=== PATIENT | male | born 1970 | race Two or more races ===

== ENCOUNTER 2025-06-28 20:56 | Inpatient (IN) | payer OTHER ==
[~2025-06-28] VITALS: Ht 170.2 cm; Wt 87.4 kg
[2025-06-29] VITALS (8 sets, daily range): BP systolic 111–133; BP diastolic 75–79; PULSE 61–87; RESP 11–18; TEMP 97.3–98.4; O2SAT 94–99
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
[2025-06-29 02:07] LABS: Hematocrit 41.3 % (41.0-53.0); Hemoglobin 14.8 g/dL (13.5-17.5); Mean Corpuscular Hemoglobin 30.6 pg (28.0-32.0); Mean Corpuscular Volume 85.2 fL (80.0-100.0); Nucleated Red Blood Cells % 0.5 %
[2025-06-29 02:16] LABS: Chloride 107 mmol/L (98-107); Potassium 3.9 mmol/L (3.5-5.1); Sodium 140 mmol/L (136-145)
[2025-06-29 02:17] LABS: Anion Gap 9 (5-15); Calcium 9.0 mg/dL (8.7-10.4); Carbon Dioxide 24 mmol/L (20-31)
[2025-06-29 02:22] LABS: BUN/Creatinine Ratio 12.3 (10.0-20.0); Blood Urea Nitrogen 10 mg/dL (9-23); Glucose 91 mg/dL (74-106)
--- NOTE | 2025-06-29 02:53 | DVH ---
CLINICAL INDICATION: Right wrist pain TECHNIQUE: XY R WRIST 3+ VIEW XRAY Comparison: None FINDINGS/IMPRESSION: : Moderately displaced fracture of the base of the 1st metacarpal. Visualized joint spaces are well preserved. Soft tissue elements are intact and normal in appearance.
[2025-06-29] MEDS ORDERED: NITROGLYCERIN 0.4 MG SL TAB SL PRN (04:00)
[2025-06-29] MEDS ORDERED: MORPHINE SULFATE INJ 2 MG/ml SYRG IV PRN (04:00)
[2025-06-29 04:18] LABS: INR 1.02 (0.9-1.15); Partial Thromboplastin Time 28.7 SEC (24.5-34.5); Prothrombin Time 10.8 sec (9.3-11.8)
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
[2025-06-29] MEDS: BUPIVACAINE HCL 0.25% P/F 10 ML VIAL ONE (09:57)
[2025-06-29] MEDS: ENOXAPARIN SOD 40 MG/0.4 ML SYRINGE SC SCH (10:00)
--- NOTE | 2025-06-29 10:19 | DVH ---
EXAM: XY CHEST PORTABLE Indication: pain Technique: Single frontal view of the chest was obtained Comparison: None FINDINGS: Lines and Tubes: None Lungs: No focal consolidation. Pleura: No effusion. No pneumothorax. Cardiomediastinal contours: Unremarkable Bones: No acute osseous abnormality. IMPRESSION: No acute cardiopulmonary disease.
[2025-06-29] MEDS: ceFAZolin 2 GM/D5W50ml 50 ML IV ONE (10:55)
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
[2025-06-29] MEDS ORDERED: fentaNYL CITRATE 100 MCG/2 ML VL ONE (11:13)
[2025-06-29] MEDS ORDERED: ONDANSETRON HCL 4 MG/2 ML VIAL ONE (11:13)
[2025-06-29] MEDS ORDERED: MIDAZOLAM HCL 2MG/2ML 2ml VIAL (1mg/ml) ONE (11:13)
[2025-06-29] MEDS ORDERED: LIDOCAINE 2% (LOCAL ANESTH.) PF 5ml SDV ONE (11:13)
[2025-06-29] MEDS ORDERED: METOCLOPRAMIDE HCL 5MG/ml INJ 2ml VIAL ONE (11:13)
[2025-06-29] MEDS ORDERED: PROPOFOL 10 MG/ML 20 ML IV ONE (11:14)
[2025-06-29] MEDS: KETOROLAC TROMETH 30 MG/ML 1ML VIAL IV ONE (11:30)
[2025-06-29] MEDS ORDERED: ONDANSETRON HCL 4 MG/2 ML VIAL IV PRN (11:30)
[2025-06-29] MEDS: ACETAMINOPHEN IV 1000 MG/100ML (10MG/ML) IV ONE (11:30)
[2025-06-29] MEDS ORDERED: HYDROmorphone HCL 2 MG/ML VL/or syr IV PRN (11:30)
[2025-06-29] MEDS: BUPIVACAINE 0.25% INJ 50ML VIAL ONE (11:41)
[2025-06-29] MEDS ORDERED: LIDOCAINE W/ EPINEPHRINE 1% 20ML VIAL ONE (11:51)
[2025-06-29] MEDS ORDERED: HYDROmorphone HCL 2 MG/ML VL/or syr ONE (11:52)
[2025-06-29] MEDS: HYDROcodone-ACET 10/325MG TAB PO PRN (15:01)
[2025-06-29] MEDS: TAMSULOSIN HYDROCHLORIDE 0.4 MG CAP PO SCH (17:59)
[2025-06-29] MEDS: ceFAZolin 1GM/50ML 50 ML IV SCH (21:33)
[2025-06-30 00:45] VITALS: BP 106/71; PULSE 92; RESP 17; TEMP 98.5; O2SAT 94
[2025-06-30 04:31] VITALS: BP_SYST 113; BP_SYST 117; BP_DIAS 72; BP_DIAS 81; PULSE 91; PULSE 99; RESP 16; RESP 18; TEMP 98.5; TEMP 98.7; O2SAT 93; O2SAT 96
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
[2025-06-30 08:00] VITALS: PULSE 95; RESP 18; O2SAT 96
[2025-06-30 08:47] VITALS: BP 128/93; PULSE 95; RESP 18; TEMP 98.1; O2SAT 96
[2025-06-30 12:38] VITALS: BP 109/75; PULSE 87; RESP 16; TEMP 97.9; O2SAT 97
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
[2025-06-30 14:57] VITALS: BP 109/75; PULSE 87; RESP 16; TEMP 97.9; O2SAT 97
--- NOTE | 2025-07-01 08:22 | ECG ---
[facility] Test Date: 2025-06-29 Test Time: 10:28:20 Pat Name: NATASHA MONTES Department: Room: 0232 A Gender: M Smoke Jumper: [id number] : 1970 Requested By: AUDREY BRASHER Order Number: [id number] Reading MD: Measurements Intervals [place] Rate: 59 P: 53 MS: 187 QRS: 27 QRSD: 79 T: 58 QT: 425 QTc: 421 Interpretive Statements Sinus rhythm Borderline low voltage, extremity leads Please click the below link to view image of tracing.
== END 2025-06-30 15:55 | DRG 514 ==
LOC: ER 20:56 → EEVIPCON 20:56 → OVERFLOW 06-29 03:53 → EAST 06-29 08:41
PROVIDERS: ADMIT Internal Medicine; ATTEND Internal Medicine
PROC: 0PSP34Z Reposition Right Metacarpal with Internal Fixation Device, Percutaneous Approach (ICD-10-PCS; principal; 2025-06-29 11:22)
DX: S62.231A Other displaced fracture of base of first metacarpal bone, right hand, initial encounter for closed fracture (principal); N40.0 Benign prostatic hyperplasia without lower urinary tract symptoms; Z79.899 Other long term (current) drug therapy; Y08.89XA Assault by other specified means, initial encounter; Y93.89 Activity, other specified; Y92.89 Other specified places as the place of occurrence of the external cause; Y99.8 Other external cause status
CPT/HCPCS: 36415; 71045; 73110; 80048; 85025; 85610; 85730; 93005; G0378; J0131; J1100; J2003; J2250; J2405; J2704; J3490

== ENCOUNTER 2025-07-16 12:23 | Emergency (ER) | payer OTHER ==
[~2025-07-16] VITALS: Ht 170.2 cm; Wt 81.8 kg
--- NOTE | 2025-07-16 13:09 | DVH ---
CLINICAL INDICATION: POSSIBLE INCISION WOUND INFECTION TECHNIQUE: 3 radiographic views of the right hand were obtained. Comparison: XY R WRIST 3+ VIEW XRAY on DOS: 06/29/25 FINDINGS/IMPRESSION: 2 internal fixation pins through the base of the 1st metacarpal.
--- NOTE | 2025-07-16 13:31 | ED.PDOC ---
History of Present Illness HPI Comments A 54 YEAR OLD MALE PRESENTS TO THE ED WITH COMPLAINT OF WOUND RECHECK OF RIGHT WRIST. PATIENT STATES HE HAD SURGERY AND HARDWARE PLACED ON HIS RIGHT WRIST 4 WEEKS AGO. PATIENT REPORTS HE BEGAN TO EXPERIENCE REDNESS AND PAIN TO THE AFFECTED AREA 4 DAYS AGO. PATIENT ALSO FEELS LIKE THE HARDWARE MAY BE STICKING OUT AND DISPLACED AND WOULD LIKE TO BE EVALUATED. PATIENT DENIES FEVER, CHILLS, SHORTNESS OF BREATH, CHEST PAIN, ABDOMINAL PAIN, NAUSEA, VOMITING, HEADACHE, OR OTHER COMPLAINTS. NO OTHER SYMPTOMS OR MODIFYING FACTORS AT THIS TIME. PATIENT IS ALERT, ORIENTED X 4, AND HAS STEADY GAIT. Chief Complaint: Wound Check Time Seen by MD: 12:33 Reviewed Notes: Nurses Notes, Medications, Allergies Allergies: Coded Allergies: NO KNOWN ALLERGIES (Unverified , 06/28/25) Home Meds No Active Prescriptions or Reported Meds Information Source: Patient, Emergency Med Personnel Mode of Arrival: EMS Severity: Moderate Timing: Days Duration: Since onset, Days Prehospital treatment: None Medication Refill: For: Other (RIGHT WRIST INCISION WOUND REDNESS AND PAIN) Past Medical History PAST MEDICAL HISTORY: Denies Surgical History: Denies all surgeries Family History Family History: Reviewed,noncontributory to illness Social History Smoker: Non-Smoker Alcohol: Denies ETOH Use Drugs: Denies Drug Use Lives In: Home Constitutional: denies: chills, diaphoresis, fatigue, fever, malaise, sweats, weakness, others EENTM: denies: blurred vision, double vision, ear bleeding, ear discharge, ear drainage, ear pain, ear ringing, eye pain, eye redness, hearing loss, mouth pain, mouth swelling, nasal discharge, nose bleeding, nose congestion, nose pain, photophobia, tearing, throat pain, throat swelling, voice changes, others Respiratory: denies: cough, hemoptysis, orthopnea, SOB at rest, shortness of breath, SOB with excertion, stridor, wheezing, others Cardiovascular: denies: chest pain, dizzy spells, diaphoresis, Dyspnea on exertion, edema, irregular heart beat, left arm pain, lightheadedness, palpitations, PND, syncope, others Gastrointestinal: denies: abdomen distended, abdominal pain, blood streaked bowels, constipated, diarrhea, dysphagia, difficulty swallowing, hematemesis, melena, nausea, poor appetite, poor fluid intake, rectal bleeding, rectal pain, vomiting, others Genitourinary: denies: burning, dysuria, flank pain, frequency, hematuria, incontinence, penile discharge, penile sore, pain, testicle pain, testicle swelling, urgency, others Neurological: denies: dizziness, fainting, headache, left sided numbness, left sided weakness, numbness, paresthesia, pre-existing deficit, right sided numbness, right sided weakness, seizure, speech problems, tingling, tremors, weakness, others Musculoskeletal: reports: others (RIGHT WRIST PAIN); denies: back pain, gout, joint pain, joint swelling, muscle pain, muscle stiffness, neck pain Integumetry: reports: others (REDNESS OF RIGHT WRIST INCISION WOUND); denies: bruises, change in color, change in hair/nails, dryness, laceration, lesions, lumps, rash, wounds Allergic/Immunocompromised: denies: Difficulty Healing, Frequent Infections, Hives, Itching, others Hematologic/Lymphatic: denies: anemia, blood clots, easy bleeding, easy bruising, swollen glands, others Endocrine: denies: excessive hunger, excessive sweating, excessive thirst, excessive urination, flushing, intolerance to cold, intolerance to heat, un explained weight gain, unexplained weight loss, others Psychiatric: denies: anxiety, bipolar disorder, depression, hopeless, panic disorder, schizophrenia, sleepless, suicidal, others All Other Systems: Reviewed and Negative Physical Exam General Appearance: No Apparent Distress, Normal HEENT: Normal ENT Inspection, PERRL/EOMI, Pharynx Normal, TMs Normal Neck: Full Range of Motion, Non-Tender, Normal, Normal Inspection Respiratory: Chest Non-Tender, Lungs Clear, No Accessory Muscle Use, No R espiratory Distress, Normal Breath Sounds Cardiovascular: No Edema, No JVD, No Murmur, No Gallop, Normal Peripheral Pulses, Regular Rate/Rhythm Breast Exam: Deferred Gastrointestinal: No Organomegaly, Non Tender, No Pulsatile Mass, Normal Bowel Sounds, Soft Genitalia: Deferred Pelvic: Deferred Rectal: Deferred Extremities: No calf tenderness, Normal capillary refill, Normal range of motion, No pedal edema, Tender (WITH A SMALL INCISION WOUND ON RIGHT DORSAL WRIST, HARD STEWART INTACT. ) Musculoskeletal : Apperance: Normal Neurologic: Alert, engineering technical analyst II-XII nml as Tested, No Motor Deficits, Normal Affect, Normal Mood, No Sensory Deficits Cerebellar Function: Normal Reflexes: Normal Skin: Dry, Normal Color, Warm, Wounds (A SMALL INCISION WOUND ON RIGHT DORSAL WRIST WITH MILD REDNESS AND TENDERNESS, NO DRAINAGE. ) Peripheral Pulses: 2+ carotid (R), 2+ carotid (L) Lymphatic: No Adenopathy Was a procedure done? Was a procedure done?: No Differential Dx Considerations may include: INCISION WOUND INFECTION, WOUND RECHECKED, HARDWARE COMPLICATION, HARDWARE DISPLACEMENT, CELLULITIS X-Ray, Labs, Meds, VS Vital Signs Date Time Temp Pulse Resp B/P (MAP) Pulse Ox O2 Delivery O2 Flow Rate FiO2 07/16/25 13:40 67 18 97 Room Air 07/16/25 13:40 98.2 67 18 132/92 (105) 97 98.2 07/16/25 12:23 98.2 67 18 132/92 97 98.2 CLINICAL INDICATION: POSSIBLE INCISION WOUND INFECTION TECHNIQUE: 3 radiographic views of the right hand were obtained. Comparison: XY R WRIST 3+ VIEW XRAY on DOS: 06/29/25 FINDINGS/IMPRESSION: 2 internal fixation pins through the base of the 1st metacarpal. ATED BY: AIDAN KELLOGG Jr., DO DICTATED DATE/TIME: 07/16/25 1307 SIGNED BY: AIDAN KELLOGG Jr., DO SIGNED DATE/TIME: 07/16/25 1307 CC: X-Ray, Labs, Meds, VS Comment EXTERNAL MEDICAL RECORDS REVIEWED: [NONE] INDEPENDENT HISTORIANS: [NONE] SOCIAL DETERMINANTS OF HEALTH: [NONE] LABS ORDERED: NONE REVIEWED AND INTERPRETED RESULTS: NONE IMAGING ORDERED: XR WRIST RT TREATMENTS ORDERED: PATIENT'S INCISION SITE ON HIS RIGHT WRIST WAS CLEANED WITH NORMAL SALINE AND WRAPPED WITH STERILE GAUZE. PROCEDURES PERFORMED: NONE CRITICAL CARE TIME: NONE I HAVE DISCUSSED THE PATIENT WITH THE ATTENDING PHYSICIAN DR. FRANCES AND HE AGREES WITH THE PATIENT'S PLAN OF CARE AND DISPOSITION. 1325: I HAVE CONSULTED THE ON-CALL GEOPHYSICAL LABORATORY SUPERVISOR DR. VALIENTE AND HE SAID THE PATIENT'S X-RAY RESULTS IN COMPLAINT IS NORMAL AND CAN BE DISCHARGED HOME WITH A PRESCRIPTION FOR KEFLEX. 1340: I HAVE CALLED THE SURGEON THAT DID THE PATIENT'S SURGERY, DR. BRASHER AND HE HAS SAID THE PATIENT CAN BE DISCHARGED HOME AND CAN FOLLOW UP WITH HIS OFFICE ON Sunday07/20/2025 AT 0900. BASED ON HISTORY OF PRESENT ILLNESS, AND PHYSICAL EXAM, PATIENT WILL BE DISCHARGED HOME. DISCUSSED PLAN FOR DISCHARGE HOME WITH RX [KEFLEX]. MEDICATION WARNINGS GIVEN. SHARED DECISION MAKING: PATIENT INSTRUCTED TO FOLLOW UP WITH PRIMARY CARE PROVIDER IN 1-2 DAYS FOR RE-EVALUATION OF SYMPTOMS. PATIENT VERBALIZES UNDERSTANDING TO RETURN TO ED FOR NEW OR WORSENING SYMPTOMS OR IF FOLLOW UP WITH PCP CANNOT BE OBTAINED. PATIENT FEELS COMFORTABLE GOING HOME AT THIS TIME. ALL QUESTIONS ADDRESSED AT TIME OF DISCHARGE. Images Reviewed?: Images reviewed and evaluated by me Time of 1ST Reevaluation: 14:00 Reevaluation 1ST: Improved Consultation: Other (ORTHOPEDIC: I HAVE CONSULTED THE ON-CALL GEOPHYSICAL LABORATORY SUPERVISOR DR. VALIENTE AND HE SAID THE PATIENT'S X-RAY RESULTS IN COMPLAINT IS NORMAL AND CAN BE DISCHARGED HOME WITH A PRESCRIPTION FOR KEFLEX.) Patient Education/Counseling: Diagnosis, Treatment, Need For Follow Up Family Education/Counseling: Diagnosis, Treatment, Need For Follow Up Medical Screening: No EMC Exist At This Time SEPSIS Sepsis Screen Date sepsis recognized/suspect: Jul 16, 2025 Time Sepsis recognized/suspect: 1223 Recent Procedure: No On Antibiotic Therapy: No Respiratory Rate >20: No Heart Rate >90: No Temp<36 C (96.8 F) or >38.3 C: No SBP <90 or MAP <65 mmHG: No New Acute Mental Status Change: No Is the patient on CPAP, BIPAP,: No Physician Orders R Wrist 3+ View Xray (07/16/25 12:34) Vital Signs Date Time Temp Pulse Resp B/P (MAP) Pulse Ox O2 Delivery O2 Flow Rate FiO2 07/16/25 13:40 67 18 97 Room Air 07/16/25 13:40 98.2 67 18 132/92 (105) 97 98.2 07/16/25 12:23 98.2 67 18 132/92 97 98.2 Departure 1 Departure Time of Disposition: 14:00 Impression: Primary Impression: Encounter for wound re-check Disposition: HOME / SELF CARE / HOMELESS Condition: Stable Additional Instructions: FOLLOW-UP WITH PCP IN 1 TO 2 DAYS. TAKE MEDICATIONS PRESCRIBED. RETURN TO ED FOR ANY NEW OR WORSENING SYMPTOMS. e-Prescriptions No Active Prescriptions or Reported Meds Discharged With: Self, Law Enforcement Critical Care Note Critical Care Time?: No Stability Stability form required: No I personally scribed for DILIA WEBER ([email or web address]) on 07/16/25 at 13:31. Electronically submitted by Jaleel Holland ([email or web address]). I personally scribed for DILIA WEBER ([email or web address]) on 07/16/25 at 13:44. Electronically submitted by Jaleel Holland ([email or web address]). DILIA WEBER Jul 16, 2025 13:31
[2025-07-16 13:40] VITALS: BP 132/92; PULSE 67; RESP 18; TEMP 98.2; O2SAT 97
== END 2025-07-16 13:52 | disposition home or self-care (01) ==
LOC: EDBD 12:23 → ER 12:25
DX: Z48.00 Encounter for change or removal of nonsurgical wound dressing (principal)
CPT/HCPCS: 73110

== ENCOUNTER 2025-07-20 10:45 | Inpatient (IN) | payer OTHER ==
[~2025-07-20] VITALS: Ht 170.2 cm; Wt 84.7 kg
--- NOTE | 2025-07-20 11:11 | ED.PDOC ---
Musculoskeletal HPI Comments 54y M who presents to the ED for chief complaint of R wrist pain. Pt is inmate and brought to Ortho appt at for reevaluation after pt had R wrist surgery at jun 30. Pt was referred to the ED for increasing pain and swelling to the R wrist. Pt is already on antibiotics after surgery but continues to have symptoms. Pt states he has been having this pain and swelling with scab to the R wrist for the past 4x days. Pt otherwise denies fall or associated injury. Pt otherwise has noted stable vitals in the ED. Pt denies any other symptoms at this time. Time Seen by MD: 11:07 Reviewed Notes: Nurses Notes, Medications, Allergies Allergies: Coded Allergies: NO KNOWN ALLERGIES (Unverified , 06/28/25) Home Meds No Active Prescriptions or Reported Meds Information Source: Patient Mode of Arrival: GUARDS Brought in by: Long Term guards Location: Right Extremity Location: Wrist Timing: Days Prehospital treatment: None Severity: Moderate Able to Move Extremity: Yes Bear Weight: Limited Pain: Moderate Mechanism: Spontaneous Circumstances: Preceding Wound Onset of Symptoms: Spontaneous Symptoms: Swelling, Pain, Erythema DVT Risk Factors: NONE Last Tetanus: Unknown Associated signs and symptoms: Wrist pain Past Medical History Past Medical History (Other): BPH, HEMORROIDS Surgical History: Denies all surgeries Surgical History (Other): R WRIST SURGERY Family History Family History: Reviewed,noncontributory to illness Social History Smoker: Non-Smoker Alcohol: Denies ETOH Use Drugs: Denies Drug Use Lives In: Home Constitutional: denies: chills, diaphoresis, fatigue, fever, malaise, sweats, weakness, others EENTM: denies: blurred vision, double vision, ear bleeding, ear discharge, ear drainage, ear pain, ear ringing, eye pain, eye redness, hearing loss, mouth pain, mouth swelling, nasal discharge, nose bleeding, nose congestion, nose pain, photophobia, tearing, throat pain, throat swelling, voice changes, others Respiratory: denies: cough, hemoptysis, orthopnea, SOB at rest, shortness of breath, SOB with excertion, stridor, wheezing, others Cardiovascular: denies: chest pain, dizzy spells, diaphoresis, Dyspnea on exertion, edema, irregular heart beat, left arm pain, lightheadedness, palpitations, PND, syncope, others Gastrointestinal: denies: abdomen distended, abdominal pain, blood streaked bowels, constipated, diarrhea, dysphagia, difficulty swallowing, hematemesis, melena, nausea, poor appetite, poor fluid intake, rectal bleeding, rectal pain, vomiting, others Genitourinary: denies: burning, dysuria, flank pain, frequency, hematuria, incontinence, penile discharge, penile sore, pain, testicle pain, testicle swelling, urgency, others Neurological: denies: dizziness, fainting, headache, left sided numbness, left sided weakness, numbness, paresthesia, pre-existing deficit, right sided numbness, right sided weakness, seizure, speech problems, tingling, tremors, weakness, others Musculoskeletal: reports: joint pain; denies: back pain, gout, joint swelling, muscle pain, muscle stiffness, neck pain, others Integumetry: denies: bruises, change in color, change in hair/nails, dryness, laceration, lesions, lumps, rash, wounds, others Allergic/Immunocompromised: denies: Difficulty Healing, Frequent Infections, Hives, Itching, others Hematologic/Lymphatic: denies: anemia, blood clots, easy bleeding, easy bruising, swollen glands, others Endocrine: denies: excessive hunger, excessive sweating, excessive thirst, excessive urination, flushing, intolerance to cold, intolerance to heat, unexplained weight gain, unexplained weight loss, others Psychiatric: denies: anxiety, bipolar disorder, depression, hopeless, panic disorder, schizophrenia, sleepless, suicidal, others All Other Systems: Reviewed and Negative Physical Exam General Appearance: Moderate Distress HEENT: Normal ENT Inspection, Pharynx Normal, TMs Normal Neck: Full Range of Motion, Non-Tender, Normal, Normal Inspection Respiratory: Chest Non-Tender, Lungs Clear, No Accessory Muscle Use, No Respiratory Distress, Normal Breath Sounds Cardiovascular: No Edema, No JVD, No Murmur, No Gallop, Normal Peripheral Pulses, Regular Rate/Rhythm Breast Exam: Deferred Gastrointestinal: No Organomegaly, Non Tender, No Pulsatile Mass, Normal Bowel Sounds, Soft Genitalia: Deferred Pelvic: Deferred Rectal: Deferred Extremities: No calf tenderness, Normal capillary refill, Normal inspection, Normal range of motion, Non-tender, No pedal edema Musculoskeletal : Apperance: Normal Neurologic: Alert, dishwashing machine repairer II-XII nml as Tested, No Motor Deficits, Normal Affect, Normal Mood, No Sensory Deficits Cerebellar Function: Normal Reflexes: Normal Skin: Dry, Normal Color, Warm, Wounds (Tenderness and redness to the right wrist) Lymphatic: No Adenopathy Was a procedure done? Was a procedure done?: No Differential Diagnosis EXT Differential Diagnosis: Cellulitis, Deep Vein Thrombosis, Fracture, Sprain, Strain, Rheumatoid, Arthritis X-Ray, Labs, Meds, VS Vital Signs Date Time Temp Pulse Resp B/P (MAP) Pulse Ox O2 Delivery O2 Flow Rate FiO2 07/20/25 10:53 97.9 65 16 104/77 98 97.9 Lab Test 07/20/25 11:15 Range/Units White Blood Count 4.7 4.4-10.8 10^3/uL Red Blood Count 5.07 4.5-5.90 10^6/uL Hemoglobin 15.3 13.5-17.5 g/dL Hematocrit 43.6 41.0-53.0 % Mean Corpuscular Volume 86.1 80.0-100.0 fL Mean Corpuscular Hemoglobin 30.2 28.0-32.0 pg Mean Corpuscular Hemoglobin Concent 35.1 32.0-36.0 g/dL Red Cell Distribution Width 12.6 11.8-14.3 % Platelet Count 218 140-450 10^3/uL Mean Platelet Volume 8.7 6.9-10.8 fL Neutrophils (%) (Auto) 46.9 37.0-80.0 % Lymphocytes (%) (Auto) 39.1 10.0-50.0 % Monocytes (%) (Auto) 10.8 0.0-12.0 % Eosinophils (%) (Auto) 2.5 0.0-7.0 % Basophils (%) (Auto) 0.7 0.0-2.0 % Neutrophils # (Auto) 2.2 1.6-8.6 10 ^3/uL Lymphocytes # (Auto) 1.8 0.4-5.4 10 ^3/uL Monocytes # (Auto) 0.5 0-1.3 10 ^3/uL Eosinophils # (Auto) 0.1 0-0.8 10 ^3/uL Basophils # (Auto) 0 0-0.2 10 ^3/uL Nucleated Red Blood Cells 0.1 % Erythrocyte Sedimentation Rate 2 0-20 mm/hr Sodium Level 140 136-145 mmol/L Potassium Level 4.0 3.5-5.1 mmol/L Chloride Level 104 98-107 mmol/L Carbon Dioxide Level 28 20-31 mmol/L Anion Gap 8 5-15 Blood Urea Nitrogen 16 9-23 mg/dL Creatinine 1.01 0.700-1.30 mg/dL Glomerular Filtration Rate Calc 88 >90 mL/min BUN/Creatinine Ratio 15.8 10.0-20.0 Serum Glucose 88 74-106 mg/dL Calcium Level 9.1 8.7-10.4 mg/dL Current Medications Medications (Trade) Dose Ordered Sig/Arnoldo Route Start Time Stop Time Status Last Admin Sodium Chloride 500 ml @ 500 mls/hr Q1H ONCE IV 07/20/25 11:15 07/20/25 12:14 DC 07/20/25 13:07 Clindamycin Phosphate 50 ml @ 50 mls/hr ONCE ONCE IV 07/20/25 11:15 07/20/25 12:14 DC 07/20/25 13:07 Ketorolac Tromethamine (Toradol Injection) 30 mg ONCE ONCE IV 07/20/25 13:45 07/20/25 13:46 DC 07/20/25 13:44 PROCEDURE(s): RWRCT - CT R WRIST WO CONTRAST IMPRESSION: 1. 2 pins transfixing the fracture site at the base of the 5th metacarpal with incomplete osseous union at this time. 2. Subcutaneous edema and probable skin thickening adjacent to the fracture site and along the course of the pins, may be due to residual postprocedural changes and/or cellulitis in the appropriate clinical setting. No organized fluid collection identified on limited noncontrast enhanced Exam to suggest abscess. Correlate with clinical findings. 3. Additional findings as described above. We did review the CAT scan of the right wrist. We then contacted the orthopedic surgeon the patient is being admitted to the hospitalist. The patient is being started on clindamycin IV piggyback The patient is being given ketorolac 30 mg IV push for the pain The CBC and chemistry panel are within normal limits The patient is being admitted at this time. Images Reviewed?: Images reviewed and evaluated by me Time of 1ST Reevaluation: 11:40 Reevaluation 1ST: Unchanged Patient Education/Counseling: Diagnosis, Treatment, Prognosis Family Education/Counseling: No Family Present Departure 1 Departure Time of Disposition: 15:43 Impression: Primary Impression: Cellulitis of right wrist Additional Impression: Status post wrist surgery Disposition: ADMITTED INPATIENT Admit to: Med Surg Condition: Fair e-Prescriptions No Active Prescriptions or Reported Meds Critical Care Note Critical Care Time?: No Stability Stability form required: Yes Unstable for transfer: ED Physician Assesment (Clinical assesment) Heart Score Heart Score: Heart Score Response (Comments) Value History N/A 0 EKG N/A 0 Age N/A 0 Risk Factors N/A 0 Troponin N/A 0 Total 0 I personally scribed for NICHOLAS BECKFORD MD ([email or web address]) on 07/20/25 at 11:11. Electronically submitted by Davie Fan ([email or web address]). I personally scribed for NICHOLAS BECKFORD MD ([email or web address]) on 07/20/25 at 13:12. Electronically submitted by Davie Fan ([email or web address]). NICHOLAS BECKFORD MD Jul 20, 2025 11:11
[2025-07-20 11:55] LABS: Hematocrit 43.6 % (41.0-53.0); Hemoglobin 15.3 g/dL (13.5-17.5); Mean Corpuscular Hemoglobin 30.2 pg (28.0-32.0); Mean Corpuscular Volume 86.1 fL (80.0-100.0); Nucleated Red Blood Cells % 0.1 %
[2025-07-20 11:56] LABS: Chloride 104 mmol/L (98-107); Potassium 4.0 mmol/L (3.5-5.1); Sodium 140 mmol/L (136-145)
[2025-07-20 11:57] LABS: Anion Gap 8 (5-15); Calcium 9.1 mg/dL (8.7-10.4); Carbon Dioxide 28 mmol/L (20-31)
[2025-07-20 12:02] LABS: BUN/Creatinine Ratio 15.8 (10.0-20.0); Blood Urea Nitrogen 16 mg/dL (9-23); Glucose 88 mg/dL (74-106)
--- NOTE | 2025-07-20 12:34 | DVH ---
CLINICAL INFORMATION: Pain. TECHNIQUE: Axial CT images of the right wrist were obtained without IV contrast. Coronal and sagittal reformatted images were obtained, reviewed, and stored. All CT scans at this medical facility are p erformed using dose modulation techniques as appropriate to a performed exam including the following: Automated exposure control was utilized; adjustment of the MA and/or KV according to patient size; a nd use of iterative reconstruction technique. CTDIvol = 7.75 mGy DLP = 174.11 mGy-cm COMPARISON: Right right wrist radiographs dated 07/16/2025. FINDINGS: There are 2 pins transfixing the fracture site at the base of the 5th metacarpal. The fra cture is incompletely united at this time with less than 50% osseous union. Artifact from the pins li mits evaluation. No other acute fracture visualized. There is a chronic ossicle adjacent to the ulna r aspect of the trapezium. Cystic change at the proximal pole of the scaphoid and adjacent portions o f the lunate. There are small cysts in the capitate and hamate. There is subcutaneous edema adjacent to the radial aspect of the 5th metacarpal base and along the course of the pins with some skin thick ening. Possible cellulitis in the appropriate clinical setting, or residual postprocedural changes or other inflammation. No organized fluid collection identified on limited noncontrast enhanced CT to s uggest abscess. No other significant soft tissue abnormality identified. IMPRESSION: 1. 2 pins transfixing the fracture site at the base of the 5th metacarpal with incomplete osseous uni on at this time. 2. Subcutaneous edema and probable skin thickening adjacent to the fracture site and along the course of the pins, may be due to residual postprocedural changes and/or cellulitis in the appropriate clin ical setting. No organized fluid collection identified on limited noncontrast enhanced Exam to sugges t abscess. Correlate with clinical findings. 3. Additional findings as described above.
[2025-07-20] MEDS: SODIUM CHLORIDE 0.9% 500 ML IV ONE (13:07)
[2025-07-20] MEDS: CLINDAMYCIN 600MG IV 50 ML IV ONE (13:07)
[2025-07-20] MEDS: KETOROLAC TROMETH 30 MG/ML 1ML VIAL IV ONE (13:44)
[2025-07-20] MEDS ORDERED: AMPICILLIN & SULBACTAM SODIUM 3 GM in SODIUM CHL 0.9% 100 ML IV SCH (14:30)
[2025-07-20] MEDS ORDERED: MORPHINE SULFATE INJ 2 MG/ml SYRG IV PRN (14:30)
[2025-07-20] MEDS ORDERED: NITROGLYCERIN 0.4 MG SL TAB SL PRN (14:30)
[2025-07-20 16:00] VITALS: PULSE 66; RESP 13; O2SAT 96
[2025-07-20] MEDS: AMPICILLIN & SULBACTAM SODIUM 3 GM in SODIUM CHL 0.9% 100 ML IV SCH ×2 (16:15→22:15)
[2025-07-20] MEDS ORDERED: VANCOMYCIN PER PHARMACY 0 MG IV SCH (18:30)
[2025-07-20] MEDS: HYDROcodone-ACET 5/325MG TAB PO PRN (18:39)
[2025-07-20] MEDS: VANCOMYCIN 1.75GM/350ML 350 ML IV ONE (18:43)
[2025-07-20 22:00] VITALS: BP 124/86; PULSE 60; RESP 18; TEMP 97.6; O2SAT 97
[2025-07-21] VITALS (8 sets, daily range): BP systolic 104–118; BP diastolic 66–76; PULSE 56–105; RESP 16–18; TEMP 97.6–98.3; O2SAT 94–98
--- NOTE | 2025-07-21 00:24 | DVHINCON2 ---
Date of service: Jul 20, 2025 Referring Physician Gudelia Reason for Consultation Cellulitis of right wrist History of Present Illness This is a 54 year old male with a PMH of BPH who presented to the ED by EMS with complaints of right wrist pain x 4 days. The patient is an inmate and brought to Ortho appt at for reevaluation after the patient had right wrist surgery at on Jun 30. Patient was referred to the ED for increasing pain and swelling to the right wrist. Patient is already on antibiotics after surgery but continues to have symptoms. Denies fall or associated injury. CT right wrist shows 2 pins transfixing the fracture site at the base of the 5th metacarpal w ith incomplete osseous union at this time, subcutaneous edema and probable skin thickening adjacent to the fracture site and along the course of the pins, may be due to residual postprocedural changes and/or cellulitis in the appropriate clinical setting. No organized fluid collection identified on limited noncontrast enhanced Exam to suggest abscess. CBC and chemistry are WNL. Patient was admitted to the hospital. I am asked to consult on this patient. Family History: Patient reports no known family medical history. Allergies: Coded Allergies: NO KNOWN ALLERGIES (Unverified , 06/28/25) Home Meds No Active Prescriptions or Reported Meds Current Medications Current Medications Medications (Trade) Dose Ordered Sig/Arnoldo Route PRN Reason Start Time Stop Time Status Last Admin Nitroglycerin (Ntrostat Sublingual) 0.4 mg Q5MINP PRN SL FOR CHEST PAIN 07/20/25 14:30 Morphine Sulfate 2 mg Q30M PRN IV FOR CHEST PAIN 07/20/25 14:30 Ampicillin Sodium/ Sulbactam Sodium 3 gm/Sodium Chloride 100 ml @ 100 mls/hr Q6H IV 07/20/25 14:30 07/20/25 16:09 DC Ampicillin Sodium/ Sulbactam Sodium 3 gm/Sodium Chloride 100 ml @ 100 mls/hr Q6H IV 07/20/25 16:00 07/20/25 22:04 DC 07/20/25 16:15 Vancomycin HCl 0 ml @ 0 mls/hr UD IV 07/20/25 18:30 Pantoprazole Sodium (Protonix Tablet) 40 mg DAILY@0600 PO 07/21/25 06:00 Enoxaparin Sodium (Lovenox) 40 mg DAILY SC 07/21/25 10:00 Acetaminophen/ Hydrocodone Bitart ([place] 5/325MG Tab) 1 tab Q4HPRN PRN PO MODERATE PAIN (4-6 PAIN SCALE) 07/20/25 18:30 07/20/25 18:39 Ampicillin Sodium/ Sulbactam Sodium 3 gm/Sodium Chloride 100 ml @ 100 mls/hr Q6H IV 07/20/25 22:15 Review of Systems Constitutional: denies: chills, diaphoresis, fatigue, fever, malaise, sweats, weakness, others EENTM: denies: blurred vision, double vision, ear bleeding, ear discharge, ear drainage, ear pain, ear ringing, eye pain, eye redness, hearing loss, mouth pain, mouth swelling, nasal discharge, nose bleeding, nose congestion, nose pain, photophobia, tearing, throat pain, throat swelling, voice changes, others Respiratory: denies: cough, hemoptysis, orthopnea, SOB at rest, shortness of breath, SOB with excertion, stridor, wheezing, others Cardiovascular: denies: chest pain, dizzy spells, diaphoresis, Dyspnea on exertion, edema, irregular heart beat, left arm pain, lightheadedness, palpi tations, PND, syncope, others Gastrointestinal: denies: abdomen distended, abdominal pain, blood streaked bowels, constipated, diarrhea, dysphagia, difficulty swallowing, hematemesis, melena, nausea, poor appetite, poor fluid intake, rectal bleeding, rectal pain, vomiting, others Genitourinary: denies: burning, dysuria, flank pain, frequency, hematuria, incontinence, penile discharge, penile sore, pain, testicle pain, testicle swelling, urgency, others Neurological: denies: dizziness, fainting, headache, left sided numbness, left sided weakness, numbness, paresthesia, pre-existing deficit, right sided numbness, right sided weakness, seizure, speech problems, tingling, tremors, weakness, others Musculoskeletal: reports: joint pain; denies: back pain, gout, joint swelling, muscle pain, muscle stiffness, neck pain, others Integumetry: denies: bruises, change in color, change in hair/nails, dryness, laceration, lesions, lumps, rash, wounds, others Allergic/Immunocompromised: denies: Difficulty Healing, Frequent Infections, Hives, Itching, others Hematologic/Lymphatic: denies: anemia, blood clots, easy bleeding, easy bruising, swollen glands, others Endocrine: denies: excessive hunger, excessive sweating, excessive thirst, excessive urination, flushing, intolerance to cold, intolerance to heat, unexplained weight gain, unexplained weight loss, others Psychiatric: denies: anxiety, bipolar disorder, depression, hopeless, panic d isorder, schizophrenia, sleepless, suicidal, others All Other Systems: Reviewed and Negative Vital Signs Vital Signs Date Time Temp Pulse Resp B/P (MAP) Pulse Ox O2 Delivery O2 Flow Rate FiO2 07/20/25 22:22 Room Air* 0 21 07/20/25 22:00 97.6 60 18 124/86 (99) 97 97.6 Physical Exam GENERAL: Alert and oriented x 3. No acute distress. EYES: PERRL, EOMI. Anicteric. HENT: Moist mucous membranes. LUNGS: Clear to auscultation bilaterally. CARDIOVASCULAR: Regular rate and rhythm. ABDOMEN: Soft, non-tender and non-distended. EXTREMITIES: Right wrist TTP. NEUROLOGIC: No focal neurological deficits. SKIN: Warm, dry. Labs/Diagnostic Data Labs Test 07/20/25 11:15 Range/Units White Blood Count 4.7 4.4-10.8 10^3/uL Red Blood Count 5.07 4.5-5.90 10^6/uL Hemoglobin 15.3 13.5-17.5 g/dL Hematocrit 43.6 41.0-53.0 % Mean Corpuscular Volume 86.1 80.0-100.0 fL Mean Corpuscular Hemoglobin 30.2 28.0-32.0 pg Mean Corpuscular Hemoglobin Concent 35.1 32.0-36.0 g/dL Red Cell Distribution Width 12.6 11.8-14.3 % Platelet Count 218 140-450 10^3/uL Mean Platelet Volume 8.7 6.9-10.8 fL Neutrophils (%) (Auto) 46.9 37.0-80.0 % Lymphocytes (%) (Auto) 39.1 10.0-50.0 % Monocytes (%) (Auto) 10.8 0.0-12.0 % Eosinophils (%) (Auto) 2.5 0.0-7.0 % Basophils (%) (Auto) 0.7 0.0-2.0 % Neutrophils # (Auto) 2.2 1.6-8.6 10 ^3/uL Lymphocytes # (Auto) 1.8 0.4-5.4 10 ^3/uL Monocytes # (Auto) 0.5 0-1.3 10 ^3/uL Eosinophils # (Auto) 0.1 0-0.8 10 ^3/uL Basophils # (Auto) 0 0-0.2 10 ^3/uL Nucleated Red Blood Cells 0.1 % Erythrocyte Sedimentation Rate 2 0-20 mm/hr Sodium Level 140 136-145 mmol/L Potassium Level 4.0 3.5-5.1 mmol/L Chloride Level 104 98-107 mmol/L Carbon Dioxide Level 28 20-31 mmol/L Anion Gap 8 5-15 Blood Urea Nitrogen 16 9-23 mg/dL Creatinine 1.01 0.700-1.30 mg/dL Glomerular Filtration Rate Calc 88 >90 mL/min BUN/Creatinine Ratio 15.8 10.0-20.0 Serum Glucose 88 74-106 mg/dL Calcium Level 9.1 8.7-10.4 mg/dL Assessment Right wrist cellulitis. Status post right metacarpal fracture. Status post wrist surgery. Plan/Recommendation I agree with your ongoing assessment and care of plan. Consult Ortho. Morphine and [place] for pain management. IV antibiotics as ordered. DVT and GI prophylactics. Nitro SL. . Additional plan as per the hospital course. A total of 45 minutes was spent reviewing the patient record, examining the patient, making a diagnostic and therapeutic plan, discussing this plan with medical personnel, following up on diagnostic studies and following the patient for clinical stability excluding any and all procedures. At least 50% of this time was spent in direct, [id number] contact. Plan discussed with: Patient HODA GARCIA MD Jul 21, 2025 00:24
[2025-07-21] MEDS: PANTOPRAZOLE 40 MG TAB PO SCH (05:12)
[2025-07-21] MEDS: ENOXAPARIN SOD 40 MG/0.4 ML SYRINGE SC SCH (09:54)
[2025-07-21] MEDS: VANCOMYCIN 1GM/250ML KIT 250 ML IV SCH (09:56)
[2025-07-21] MEDS ORDERED: VANCOMYCIN 1GM/250ML KIT 250 ML IV SCH (10:00)
[2025-07-21] MEDS: BUPIVACAINE 0.25% INJ 50ML VIAL ONE (12:19)
[2025-07-21] MEDS: LIDOCAINE 1% HCL (LOCAL ANESTH.) INJ 20ML MDV ONE (12:19)
--- NOTE | 2025-07-21 12:22 | DVHINCON2 ---
Date of service: Jul 20, 2025 Reason for Consultation Right hand pain/swelling History of Present Illness 54 YO m with hx of ORIF right thumb metacarpal fracture 4 weeks ago -- patient did not get pins removed and said they are inside his skin now. Pain with thumb motion. No fever/chills/cp/sob/abd pain. Past Medical History BPH Past Surgical History ORIF Right thumb Family History: Patient reports no known family medical history. Allergies: Coded Allergies: NO KNOWN ALLERGIES (Unverified , 06/28/25) Home Meds No Active Prescriptions or Reported Meds Current Medications Current Medications Medications (Trade) Dose Ordered Sig/Arnoldo Route PRN Reason Start Time Stop Time Status Last Admin Nitroglycerin (Ntrostat Sublingual) 0.4 mg Q5MINP PRN SL FOR CHEST PAIN 07/20/25 14:30 Morphine Sulfate 2 mg Q30M PRN IV FOR CHEST PAIN 07/20/25 14:30 Ampicillin Sodium/ Sulbactam Sodium 3 gm/Sodium Chloride 100 ml @ 100 mls/hr Q6H IV 07/20/25 14:30 07/20/25 16:09 DC Ampicillin Sodium/ Sulbactam Sodium 3 gm/Sodium Chloride 100 ml @ 100 mls/hr Q6H IV 07/20/25 16:00 07/20/25 22:04 DC 07/20/25 16:15 Vancomycin HCl 0 ml @ 0 mls/hr UD IV 07/20/25 18:30 Pantoprazole Sodium (Protonix Tablet) 40 mg DAILY@0600 PO 07/21/25 06:00 07/21/25 05:47 Enoxaparin Sodium (Lovenox) 40 mg DAILY SC 07/21/25 10:00 Acetaminophen/ Hydrocodone Bitart ([place] 5/325MG Tab) 1 tab Q4HPRN PRN PO MODERATE PAIN (4-6 PAIN SCALE) 07/20/25 18:30 07/21/25 05:47 Ampicillin Sodium/ Sulbactam Sodium 3 gm/Sodium Chloride 100 ml @ 100 mls/hr Q6H IV 07/20/25 22:15 07/21/25 11:37 Vancomycin HCl 250 ml @ 250 mls/hr Q12HR IV 07/21/25 10:00 07/21/25 09:56 Vancomycin HCl 250 ml @ 250 mls/hr Q12HR IV 07/21/25 10:00 07/21/25 09:53 DC Review of Systems 10 point ROS is neg except per HPI Vital Signs Vital Signs Date Time Temp Pulse Resp B/P (MAP) Pulse Ox O2 Delivery O2 Flow Rate FiO2 07/21/25 09:10 98.3 63 17 104/66 (79) 96 98.3 07/20/25 22:22 Room Air* 0 21 Physical Exam NAD RUE: +serous drainage at wrist +delt/bi/tri/we/wf pain with PROM at hand RP 2+ Labs/Diagnostic Data Labs Test 07/21/25 10:07 07/20/25 11:15 Range/Units Creatinine 0.93 0.700-1.30 mg/dL Glomerular Filtration Rate Calc 97 >90 mL/min White Blood Count 4.7 4.4-10.8 10^3/uL Red Blood Count 5.07 4.5-5.90 10^6/uL Hemoglobin 15.3 13.5-17.5 g/dL Hematocrit 43.6 41.0-53.0 % Mean Corpuscular Volume 86.1 80.0-100.0 fL Mean Corpuscular Hemoglobin 30.2 28.0-32.0 pg Mean Corpuscular Hemoglobin Concent 35.1 32.0-36.0 g/dL Red Cell Distribution Width 12.6 11.8-14.3 % Platelet Count 218 140-450 10^3/uL Mean Platelet Volume 8.7 6.9-10.8 fL Neutrophils (%) (Auto) 46.9 37.0-80.0 % Lymphocytes (%) (Auto) 39.1 10.0-50.0 % Monocytes (%) (Auto) 10.8 0.0-12.0 % Eosinophils (%) (Auto) 2.5 0.0-7.0 % Basophils (%) (Auto) 0.7 0.0-2.0 % Neutrophils # (Auto) 2.2 1.6-8.6 10 ^3/uL Lymphocytes # (Auto) 1.8 0.4-5.4 10 ^3/uL Monocytes # (Auto) 0.5 0-1.3 10 ^3/uL Eosinophils # (Auto) 0.1 0-0.8 10 ^3/uL Basophils # (Auto) 0 0-0.2 10 ^3/uL Nucleated Red Blood Cells 0.1 % Erythrocyte Sedimentation Rate 2 0-20 mm/hr Sodium Level 140 136-145 mmol/L Potassium Level 4.0 3.5-5.1 mmol/L Chloride Level 104 98-107 mmol/L Carbon Dioxide Level 28 20-31 mmol/L Anion Gap 8 5-15 Blood Urea Nitrogen 16 9-23 mg/dL BUN/Creatinine Ratio 15.8 10.0-20.0 Serum Glucose 88 74-106 mg/dL Calcium Level 9.1 8.7-10.4 mg/dL Plan/Recommendation 54 yo M sp ORIF Right hand metacarpal fracture with hardware related pain 1. Plan for irrigation and debridement of right hand/ right thumb hardware removal 2. Risks benefits options and alternatives reviewed in depth. Risks include but not exclusive to bleeding infection nerve injury hardware failure nonunion malunion chronic pain blood clots cardiac and pulmonary complications amputation and . Patient understands the risks and wishes to proceed with surgery 3. NPO/IVF 4. pain control Plan discussed with: Patient AUDREY BRASHER MD Jul 21, 2025 12:22
--- NOTE | 2025-07-21 12:26 | DVHOP2 ---
Operative Report - 2 Report Details Date: 07/21/25 Preop Diagnosis: Right thumb metacarpal hardware pain/ wrist seroma Postop Diagnosis: Right thumb metacarpal hardware pain/ wrist seroma Surgeon: Herson Roy MD Radar Repairer: Phillip GARZA Anesthesiologist: Chin CHU Anesthesia: General Consent: The patient was informed of the risks and benefits of the procedure. These include but are not limited to complications of anesthesia, postoperative infection, incomplete relief of symptoms, recurrence of symptoms, damage to blood vessels, nerves and tendons, deep venous thrombosis, pulmonary embolism and possible need for repeat surgery in the future. Estimated Blood Loss: 5 cc Name of Procedure Performed 1. Right hand irrigation and debridement/ right hand hardware removal/intra-op fluoroscopy Procedure Details Procedure Details: The patient presented with a retained pin in the right thumb metacarpal and clinical concern for infection or wound complications in the right hand. The decision was made to proceed with irrigation and debridement, pin removal, and exploration via incisions at the metacarpal base and between the thumb and index finger. Description of Procedure: The patient was brought to the operating room and placed supine on the operating table. The right upper extremity was prepped and draped in the usual sterile fashion. Appropriate anesthesia was administered. Attention was directed to the right hand. The previous pin site at the base of the right thumb metacarpal was identified. A longitudinal incision was made over the base of the right thumb metacarpal, and dissection was carried down to the level of the hardware. The pins was identified, grasped with a asphalt tamping machine operator, and removed in its entirety without difficulty. A second incision was made in the web space between the right thumb and index finger to allow for further exploration and access to the area of concern. Both incisions and the surrounding soft tissues were thoroughly irrigated with copious amounts of normal saline. All nonviable and devitalized tissue was sharply debrided until only healthy, viable tissue remained. Hemostasis was achieved with electrocautery. The wounds were inspected and found to be clean, with no evidence of residual infection or retained foreign ma terial. The incisions were closed with interrupted 4-0 nylon sutures. Sterile dressings were applied. The patient tolerated the procedure well and was transferred to the recovery area in stable condition. Condition Good Disposition Still a Patient HERSON ROY MD Jul 21, 2025 12:26
[2025-07-21] MEDS ORDERED: fentaNYL CITRATE 100 MCG/2 ML VL ONE (12:35)
[2025-07-21] MEDS ORDERED: MIDAZOLAM HCL 2MG/2ML 2ml VIAL (1mg/ml) ONE (12:35)
[2025-07-21] MEDS ORDERED: ONDANSETRON HCL 4 MG/2 ML VIAL ONE (12:36)
[2025-07-21] MEDS ORDERED: LIDOCAINE 2%HCL (LOCAL ANESTH.) INJ 10ml MDV ONE (12:37)
[2025-07-21] MEDS ORDERED: METOCLOPRAMIDE HCL 5MG/ml INJ 2ml VIAL ONE (12:37)
[2025-07-21] MEDS ORDERED: PROPOFOL 10 MG/ML 20 ML IV ONE (12:38)
[2025-07-21] MEDS ORDERED: HYDROmorphone HCL 2 MG/ML VL/or syr ONE (13:11)
[2025-07-21] MEDS ORDERED: SODIUM CHLORIDE LOCK 10 ML ONE (13:15)
[2025-07-21] MEDS ORDERED: LIDOCAINE W/ EPINEPHRINE 1% 20ML VIAL ONE (13:20)
[2025-07-21] MEDS ORDERED: BUPIVACAINE 0.25% INJ 50ML VIAL ONE (13:21)
[2025-07-21] MEDS ORDERED: METOCLOPRAMIDE HCL 5MG/ml INJ 2ml VIAL IV PRN (14:00)
[2025-07-21] MEDS ORDERED: ACETAMINOPHEN IV 1000 MG/100ML (10MG/ML) IV ONE (14:00)
[2025-07-21] MEDS ORDERED: ONDANSETRON HCL 4 MG/2 ML VIAL IV PRN (14:00)
[2025-07-21] MEDS ORDERED: HYDROmorphone HCL 2 MG/ML VL/or syr IV PRN (14:00)
--- NOTE | 2025-07-21 19:33 | DVHINCON2 ---
Family History: Patient reports no known family medical history. Allergies: Coded Allergies: NO KNOWN ALLERGIES (Unverified , 06/28/25) Home Meds No Active Prescriptions or Reported Meds Current Medications Current Medications Medications (Trade) Dose Ordered Sig/Arnoldo Route PRN Reason Start Time Stop Time Status Last Admin Pantoprazole Sodium (Protonix Tablet) 40 mg DAILY@0600 PO 07/21/25 06:00 07/21/25 05:47 Enoxaparin Sodium (Lovenox) 40 mg DAILY SC 07/21/25 10:00 Ampicillin Sodium/ Sulbactam Sodium 3 gm/Sodium Chloride 100 ml @ 100 mls/hr Q6H IV 07/20/25 22:15 07/21/25 15:33 Vancomycin HCl 250 ml @ 250 mls/hr Q12HR IV 07/21/25 10:00 07/21/25 09:56 Vancomycin HCl 250 ml @ 250 mls/hr Q12HR IV 07/21/25 10:00 07/21/25 09:53 DC Ondansetron HCl (Zofran) 4 mg ONCE PRN IV NAUSEA / VOMITING 07/21/25 14:00 07/21/25 14:17 DC Metoclopramide HCl (Reglan Injection) 10 mg ONCE PRN IV NAUSEA / VOMITING 07/21/25 14:00 07/21/25 14:17 DC Hydromorphone HCl (Dilaudid Injection) 0.5 mg Q10M PRN IV SEVERE PAIN (7-10 PAIN SCALE) 07/21/25 14:00 07/21/25 14:41 DC Vital Signs Vital Signs Date Time Temp Pulse Resp B/P (MAP) Pulse Ox O2 Delivery O2 Flow Rate FiO2 07/21/25 16:44 97.7 98 17 111/68 (82) 96 97.7 07/21/25 13:43 Room Air 0 95 Labs/Diagnostic Data Labs Test 07/21/25 10:07 07/20/25 11:15 Range/Units Creatinine 0.93 0.700-1.30 mg/dL Glomerular Filtration Rate Calc 97 >90 mL/min White Blood Count 4.7 4.4-10.8 10^3/uL Red Blood Count 5.07 4.5-5.90 10^6/uL Hemoglobin 15.3 13.5-17.5 g/dL Hematocrit 43.6 41.0-53.0 % Mean Corpuscular Volume 86.1 80.0-100.0 fL Mean Corpuscular Hemoglobin 30.2 28.0-32.0 pg Mean Corpuscular Hemoglobin Concent 35.1 32.0-36.0 g/dL Red Cell Distribution Width 12.6 11.8-14.3 % Platelet Count 218 140-450 10^3/uL Mean Platelet Volume 8.7 6.9-10.8 fL Neutrophils (%) (Auto) 46.9 37.0-80.0 % Lymphocytes (%) (Auto) 39.1 10.0-50.0 % Monocytes (%) (Auto) 10.8 0.0-12.0 % Eosinophils (%) (Auto) 2.5 0.0-7.0 % Basophils (%) (Auto) 0.7 0.0-2.0 % Neutrophils # (Auto) 2.2 1.6-8.6 10 ^3/uL Lymphocytes # (Auto) 1.8 0.4-5.4 10 ^3/uL Monocytes # (Auto) 0.5 0-1.3 10 ^3/uL Eosinophils # (Auto) 0.1 0-0.8 10 ^3/uL Basophils # (Auto) 0 0-0.2 10 ^3/uL Nucleated Red Blood Cells 0.1 % Erythrocyte Sedimentation Rate 2 0-20 mm/hr Sodium Level 140 136-145 mmol/L Potassium Level 4.0 3.5-5.1 mmol/L Chloride Level 104 98-107 mmol/L Carbon Dioxide Level 28 20-31 mmol/L Anion Gap 8 5-15 Blood Urea Nitrogen 16 9-23 mg/dL BUN/Creatinine Ratio 15.8 10.0-20.0 Serum Glucose 88 74-106 mg/dL Calcium Level 9.1 8.7-10.4 mg/dL Microbiology Date/Time Source Procedure Growth Status 07/21/25 05:25 Nose MRSA Screen - Final Complete LAURE ROBERTSON MD Jul 21, 2025 19:33
[2025-07-22] VITALS (7 sets, daily range): BP systolic 95–117; BP diastolic 57–78; PULSE 70–100; RESP 15–18; TEMP 98–98.5; O2SAT 95–98
--- NOTE | 2025-07-22 01:22 | DVHPN2 ---
Progress Note - Dictate Date Seen: Jul 21, 2025 Medical Necessity Reason Pt with a Central, PICC or Fol: No Subjective Patient was seen and evaluated in follow-up. Patient underwent right hand irrigation and debridement with hardware removal. Patient tolerated the procedure well. vital signs Vital Sign Date Time Temp Pulse Resp B/P (MAP) Pulse Ox O2 Delivery O2 Flow Rate FiO2 07/21/25 09:10 98.3 63 17 104/66 (79) 96 98.3 07/21/25 08:00 Room Air* 0 21 Total Intake and Output 07/20/25 07/20/25 07/21/25 15:00 23:00 07:00 Intake Total 550 ml 100 ml 0 ml Balance 550 ml 100 ml 0 ml medications Current Medications Medications Dose Ordered Sig/Arnoldo Route Start Time Stop Time Status Last Admin Dose Admin Nitroglycerin 0.4 mg Q5MINP PRN SL 07/20/25 14:30 Morphine Sulfate 2 mg Q30M PRN IV 07/20/25 14:30 Vancomycin HCl 0 ml @ 0 mls/hr UD IV 07/20/25 18:30 Pantoprazole Sodium 40 mg DAILY@0600 PO 07/21/25 06:00 07/21/25 05:47 40 MG Enoxaparin Sodium 40 mg DAILY SC 07/21/25 10:00 Acetaminophen/ Hydrocodone Bitart 1 tab Q4HPRN PRN PO 07/20/25 18:30 07/21/25 05:47 1 TAB Ampicillin Sodium/ Sulbactam Sodium 3 gm/Sodium Chloride 100 ml @ 100 mls/hr Q6H IV 07/20/25 22:15 07/21/25 11:37 100 MLS/HR Vancomycin HCl 250 ml @ 250 mls/hr Q12HR IV 07/21/25 10:00 07/21/25 09:56 250 MLS/HR Hydromorphone HCl 0.5 mg Q10M PRN IV 07/21/25 14:00 07/21/25 14:41 objective GENERAL: Alert and oriented x 3. No acute distress. EYES: PERRL, EOMI. Anicteric. HENT: Moist mucous membranes. LUNGS: Clear to auscultation bilaterally. CARDIOVASCULAR: Regular rate and rhythm. ABDOMEN: Soft, non-tender and non-distended. EXTREMITIES: Right wrist TTP. NEUROLOGIC: No focal neurological deficits. SKIN: Warm, dry. laboratory and microbiology Laboratory Tests 07/21/25 10:07 07/20/25 11:15 Test 07/20/25 11:15 Range/Units Serum Glucose 88 74-106 mg/dL Problem List Right wrist cellulitis. Status post right metacarpal fracture. Status post wrist surgery. Assessment/Plan Continued all current supportive medical care. Morphine and [place] for pain management. IV antibiotics as ordered. GI prophylactics. Nitro SL. Additional plan as per the hospital course. Plan discussed with: Patient HODA GARCIA MD Jul 21, 2025 14:27
--- NOTE | 2025-07-22 11:41 | DVHPN ---
DATE: 07/22/2025 SUBJECTIVE: The patient is seen lying in bed. He is comfortable. He is in no active distress. He states that the pain in his right wrist continues and he requires pain medicine "all the time." He denies any chest pain, cough, shortness of breath or fever. OBJECTIVE: VITAL SIGNS: His temperature is 98.5 with a blood pressure of 105/72, heart rate of 84, respiratory rate is 17, O2 saturation is 96% on room air. HEART: S1, S2, regular. LUNGS: Good equal air exchange bilaterally. Clear to auscultation. ABDOMEN: Soft and benign. NEUROLOGIC: Awake, alert and oriented x 4. LABORATORY DATA: None. ASSESSMENT: Cellulitis, right hand status post irrigation and debridement with hardware removal. PLAN: We will continue with the IV antibiotics using vancomycin and Unasyn. We will continue with the analgesics. He is on hydrocodone and will continue with DVT prophylaxis with Lovenox. I have encouraged the patient to ambulate. MD PETER Hazel/LOPEZ TID: [id number] RECEIPT: [id number]
[2025-07-22] MEDS: VANCOMYCIN 1GM/250ML KIT 250 ML IV SCH (18:09)
--- NOTE | 2025-07-22 21:18 | DVHPN2 ---
Progress Note - Dictate Date Seen: Jul 22, 2025 Medical Necessity Reason Pt with a Central, PICC or Fol: No Subjective Patient was seen and evaluated in follow-up. No overnight events. Patient complains of right wrist pain. vital signs Vital Sign Date Time Temp Pulse Resp B/P (MAP) Pulse Ox O2 Delivery O2 Flow Rate FiO2 07/22/25 13:00 98.0 76 17 115/78 (90) 96 98.0 07/22/25 08:00 Room Air* 0 21 Total Intake and Output 07/21/25 07/21/25 07/22/25 15:00 23:00 07:00 Intake Total 350 ml 975 ml 900 ml Output Total 700 ml 1100 ml Balance 350 ml 275 ml -200 ml medications Current Medications Medications Dose Ordered Sig/Arnoldo Route Start Time Stop Time Status Last Admin Dose Admin Nitroglycerin 0.4 mg Q5MINP PRN SL 07/20/25 14:30 Morphine Sulfate 2 mg Q30M PRN IV 07/20/25 14:30 Vancomycin HCl 0 ml @ 0 mls/hr UD IV 07/20/25 18:30 Pantoprazole Sodium 40 mg DAILY@0600 PO 07/21/25 06:00 07/22/25 05:19 40 MG Enoxaparin Sodium 40 mg DAILY SC 07/21/25 10:00 07/22/25 10:10 40 MG Acetaminophen/ Hydrocodone Bitart 1 tab Q4HPRN PRN PO 07/20/25 18:30 07/22/25 10:10 1 TAB Ampicillin Sodium/ Sulbactam Sodium 3 gm/Sodium Chloride 100 ml @ 100 mls/hr Q6H IV 07/20/25 22:15 07/22/25 10:16 100 MLS/HR Vancomycin HCl 250 ml @ 250 mls/hr Q8H IV 07/22/25 18:00 objective GENERAL: Alert and oriented x 3. No acute distress. EYES: PERRL, EOMI. Anicteric. HENT: Moist mucous membranes. LUNGS: Clear to auscultation bilaterally. CARDIOVASCULAR: Regular rate and rhythm. ABDOMEN: Soft, non-tender and non-distended. EXTREMITIES: Right wrist TTP. NEUROLOGIC: No focal neurological deficits. SKIN: Warm, dry. laboratory and microbiology Laboratory Tests 07/22/25 09:45 07/20/25 11:15 Test 07/20/25 11:15 Range/Units Serum Glucose 88 74-106 mg/dL Problem List Right wrist cellulitis. Status post right metacarpal fracture. Status post wrist surgery. Assessment/Plan Continued all current supportive medical care. Morphine and [place] for pain management. IV antibiotics as ordered. GI and DVT prophylactics. Nitro SL. Additional plan as per the hospital course. Plan discussed with: Patient HODA GARCIA MD Jul 22, 2025 13:50
--- NOTE | 2025-07-22 22:35 | DVHPN2 ---
Consult Progress Note Objective vital signs Vital Sign Date Time Temp Pulse Resp B/P (MAP) Pulse Ox O2 Delivery O2 Flow Rate FiO2 07/22/25 21:00 98.5 70 15 99/70 (80) 97 98.5 07/22/25 08:00 Room Air* 0 21 Total Intake and Output 07/21/25 07/21/25 07/22/25 15:00 23:00 07:00 Intake Total 350 ml 975 ml 900 ml Output Total 700 ml 1100 ml Balance 350 ml 275 ml -200 ml medications Current Medications Medications Dose Ordered Sig/Arnoldo Route Start Time Stop Time Status Last Admin Dose Admin Nitroglycerin 0.4 mg Q5MINP PRN SL 07/20/25 14:30 Morphine Sulfate 2 mg Q30M PRN IV 07/20/25 14:30 Vancomycin HCl 0 ml @ 0 mls/hr UD IV 07/20/25 18:30 Pantoprazole Sodium 40 mg DAILY@0600 PO 07/21/25 06:00 07/22/25 05:19 40 MG Enoxaparin Sodium 40 mg DAILY SC 07/21/25 10:00 07/22/25 10:10 40 MG Acetaminophen/ Hydrocodone Bitart 1 tab Q4HPRN PRN PO 07/20/25 18:30 07/22/25 15:49 1 TAB Vancomycin HCl 250 ml @ 250 mls/hr Q8H IV 07/22/25 18:00 07/22/25 18:09 250 MLS/HR Cefepime HCl 50 ml @ 12.5 mls/hr Q8HR IV 07/23/25 06:00 UNV laboratory and microbiology Laboratory Tests 07/22/25 09:45 07/20/25 11:15 Test 07/20/25 11:15 Range/Units Serum Glucose 88 74-106 mg/dL LAURE ROBERTSON MD Jul 22, 2025 22:35
[2025-07-23] VITALS (8 sets, daily range): BP systolic 97–108; BP diastolic 60–80; PULSE 60–72; RESP 14–20; TEMP 97.8–98.5; O2SAT 95–98
[2025-07-23] MEDS: CEFEPIME 2GM/50ML NS 50 ML IV SCH (05:25)
--- NOTE | 2025-07-23 05:58 | DVH ---
CLINICAL INDICATION: evaluate for retained hardware positioning, fracture TECHNIQUE: XY R WRIST 2 VIEW XRAY Comparison: CT CT R WRIST WO CONTRAST on DOS: 07/20/25, XY R HAND 3 VIEW XRAY on DOS: 07/20/25, XY R WRIST 3+ VIEW XRAY on DOS: 07/16/25, XY R WRIST 3+ VIEW XRAY on DOS: 06/29/25 FINDINGS: XY R WRIST 3+ VIEW XRAY on DOS Overlying cast obscures bony and soft-tissue detail. Redemonstration of mildly displaced fracture of the base of the 1st metacarpal. IMPRESSION: 1. Overlying cast obscures bony and soft-tissue detail. 2. Redemonstration of mildly displaced fracture of the base of the 1st metacarpal. 3. No appreciable radiopaque foreign body.
--- NOTE | 2025-07-23 08:03 | ECG ---
[facility] Test Date: 2025-07-21 Test Time: 05:55:50 Pat Name: NATASHA MONTES Department: Respiratoy Room: 0238 A Gender: M [employer] Chair: NICO : [id number] Requested By: HODA GARCIA Order Number: [id number] Reading MD: Billy Galaviz Measurements Intervals [place] Rate: 56 P: 62 KS: 191 QRS: 33 QRSD: 80 T: 54 QT: 431 QTc: 416 Interpretive Statements Pediatric ECG interpretation Sinus bradycardia Low voltage, extremity and precordial leads Electronically Signed On 07-25-2025 17:23:40 PDT by Billy Galaviz Please click the below link to view image of tracing.
[2025-07-23] MEDS ORDERED: AUG875T PO (11:13)
--- NOTE | 2025-07-23 11:30 | DVHPN ---
DATE: 07/23/2025 ATTENDING PHYSICIAN: Dr. Edward Mosley. SUBJECTIVE: The patient is lying in bed, watching TV. He is comfortable. He is in no active distress. He is smiling. He offers no new complaints. No untoward events have been noted. OBJECTIVE: VITAL SIGNS: His temperature is 98 with a blood pressure of 99/62, heart rate of 61, respiratory rate 18, O2 saturation is 95% on room air. HEART: S1, S2 regular. LUNGS: Clear to auscultation. ABDOMEN: Soft and benign. EXTREMITIES: His left hand/wrist remains in a cast, which is clean, though he is neurovascularly intact distally. ASSESSMENT: Cellulitis right hand/wrist status post irrigation and debridement with a hardware removal. PLAN: We will continue with the vancomycin and cefepime as recommended by ID Consult. We will continue with [place] for pain, Lovenox for DVT prophylaxis. Again, I encouraged the patient to ambulate as tolerated. MD PETER Hazel/LINETTE TID: [id number] RECEIPT: [id number]
[2025-07-23] MEDS: LACTULOSE 20Gm/30ML SOLN PO PRN (12:31)
[2025-07-23] MEDS: VANCOMYCIN 500mg/100mL 100 ML IV SCH (17:15)
[2025-07-23] MEDS: DOCUSATE SOD 100 MG CAP PO SCH (21:27)
[2025-07-23] MEDS ORDERED: DOCUSATE SOD 100 MG CAP PO SCH (22:00)
--- NOTE | 2025-07-23 22:15 | DVHPN2 ---
Progress Note - Dictate Date Seen: Jul 23, 2025 Medical Necessity Reason Pt with a Central, PICC or Fol: No Subjective Patient was seen and evaluated in follow up. Patient reports his wrist pain has improved. Patient endorses feeling constipated. Last BM was on 07/18. Patients care will be transferred to Dr. Mosley as he is PMD. I will continue to follow the patient from cardiology standpoint. vital signs Vital Sign Date Time Temp Pulse Resp B/P (MAP) Pulse Ox O2 Delivery O2 Flow Rate FiO2 07/23/25 09:00 98.0 61 18 99/62 (74) 95 98.0 07/23/25 08:00 Room Air* 0 21 Total Intake and Output 07/22/25 07/22/25 07/23/25 15:00 23:00 07:00 Intake Total 350 ml 1250 ml 350 ml Output Total 1600 ml 550 ml Balance 350 ml -350 ml -200 ml medications Current Medications Medications Dose Ordered Sig/Arnoldo Route Start Time Stop Time Status Last Admin Dose Admin Nitroglycerin 0.4 mg Q5MINP PRN SL 07/20/25 14:30 Vancomycin HCl 0 ml @ 0 mls/hr UD IV 07/20/25 18:30 Pantoprazole Sodium 40 mg DAILY@0600 PO 07/21/25 06:00 07/23/25 05:23 40 MG Enoxaparin Sodium 40 mg DAILY SC 07/21/25 10:00 07/23/25 08:16 40 MG Acetaminophen/ Hydrocodone Bitart 1 tab Q4HPRN PRN PO 07/20/25 18:30 07/23/25 08:15 1 TAB Vancomycin HCl 250 ml @ 250 mls/hr Q8H IV 07/22/25 18:00 07/23/25 01:52 250 MLS/HR Cefepime HCl 50 ml @ 12.5 mls/hr Q8HR IV 07/23/25 06:00 07/23/25 05:25 12.5 MLS/HR Docusate Sodium 200 mg BID PO 07/23/25 22:00 UNV Lactulose 30 ml TIDP PRN PO 07/23/25 11:30 Docusate Sodium 100 mg BID PO 07/23/25 22:00 objective GENERAL: Alert and oriented x 3. No acute distress. EYES: PERRL, EOMI. Anicteric. HENT: Moist mucous membranes. LUNGS: Clear to auscultation bilaterally. CARDIOVASCULAR: Regular rate and rhythm. ABDOMEN: Soft, non-tender and non-distended. EXTREMITIES: Right wrist TTP. NEUROLOGIC: No focal neurological deficits. SKIN: Warm, dry. laboratory and microbiology Laboratory Tests 07/23/25 09:07 07/20/25 11:15 Test 07/20/25 11:15 Range/Units Serum Glucose 88 74-106 mg/dL Problem List Right wrist cellulitis. Status post right metacarpal fracture. Status post wrist surgery. Assessment/Plan Continued all current supportive medical care. [place] for pain management. IV antibiotics as ordered. DVT and GI prophylactics. Nitro SL. Additional plan as per the hospital course. Plan discussed with: Patient HODA GARCIA MD Jul 23, 2025 12:17
--- NOTE | 2025-07-23 22:15 | DVHPN2 ---
Consult Progress Note Objective vital signs Vital Sign Date Time Temp Pulse Resp B/P (MAP) Pulse Ox O2 Delivery O2 Flow Rate FiO2 07/23/25 21:00 98.1 64 20 108/80 (89) 96 98.1 07/23/25 20:00 Room Air* 0 21 Total Intake and Output 07/22/25 07/22/25 07/23/25 15:00 23:00 07:00 Intake Total 350 ml 1250 ml 350 ml Output Total 1600 ml 550 ml Balance 350 ml -350 ml -200 ml medications Current Medications Medications Dose Ordered Sig/Arnold[place] Route Start Time Stop Time Status Last Admin Dose Admin Nitroglycerin 0.4 mg Q5MINP PRN SL 07/20/25 14:30 Vancomycin HCl 0 ml @ 0 mls/hr UD IV 07/20/25 18:30 Pantoprazole Sodium 40 mg DAILY@0600 PO 07/21/25 06:00 07/23/25 05:23 40 MG Enoxaparin Sodium 40 mg DAILY SC 07/21/25 10:00 07/23/25 08:16 40 MG Acetaminophen/ Hydrocodone Bitart 1 tab Q4HPRN PRN PO 07/20/25 18:30 07/23/25 12:32 1 TAB Cefepime HCl 50 ml @ 12.5 mls/hr Q8HR IV 07/23/25 06:00 07/23/25 21:27 12.5 MLS/HR Docusate Sodium 200 mg BID PO 07/23/25 22:00 UNV Lactulose 30 ml TIDP PRN PO 07/23/25 11:30 07/23/25 12:31 30 ML Docusate Sodium 100 mg BID PO 07/23/25 22:00 07/23/25 21:27 100 MG Vancomycin HCl 100 ml @ 200 mls/hr Q8H IV 07/23/25 18:00 07/23/25 17:15 200 MLS/HR laboratory and microbiology Laboratory Tests 07/23/25 09:07 07/20/25 11:15 Test 07/20/25 11:15 Range/Units Serum Glucose 88 74-106 mg/dL Problem List/Assessment/Plan Problem List/Assessment/Plan patient seen at bedside, full note to follow patient cast over R hand no drainage no pain no fever sp surgery xr confirms no retained hardware change to clindamycin and ciprofloxacin for 6 weeks recommend patient get ongoing care for fracture after antibiotics are complete per patient, patient may be deported, so will avoid IV antibiotics. good possibility of infection resolution given complete hardware removal LAURE ROBERTSON MD Jul 23, 2025 22:15
[2025-07-24 01:00] VITALS: BP 100/64; PULSE 65; RESP 20; TEMP 98.3; O2SAT 95
[2025-07-24 05:00] VITALS: BP 97/61; PULSE 61; RESP 19; TEMP 97.5; O2SAT 96
[2025-07-24] MEDS: CLINDAMYCIN HCL 150 MG CAP PO SCH (05:21)
[2025-07-24 08:00] VITALS: PULSE 72; RESP 18; O2SAT 98
[2025-07-24 08:41] VITALS: BP 90/60; PULSE 63; RESP 18; TEMP 98.2; O2SAT 95
[2025-07-24] MEDS: CIPROFLOXACIN HCL 500 MG TAB PO SCH (10:28)
[2025-07-24] MEDS ORDERED: CLIN150C18 PO (11:44)
[2025-07-24] MEDS ORDERED: CIP500T PO (11:44)
[2025-07-24 13:00] VITALS: BP 97/60; PULSE 57; RESP 18; TEMP 97.7; O2SAT 95
--- NOTE | 2025-07-24 17:42 | DVHDS ---
DATE OF DISCHARGE: 07/24/2025 ATTENDING PHYSICIAN: Edward Mosley MD CHIEF COMPLAINT ON ADMISSION: Right wrist pain. HISTORY OF PRESENT ILLNESS: This is a 54-year-old male, [employer] inmate, who had a fracture of the wrist a couple of weeks prior to admission and underwent ORIF of right wrist fracture with placement of hardware. Ensuing a few weeks, the patient complained of pain to the wrist with redness. He was brought through emergency room where he was found to have possible cellulitis and was admitted for further management. ADMITTING DIAGNOSIS: Right wrist cellulitis, status post right metacarpal fracture, status post ORIF of fracture. HOSPITAL COURSE: The patient was admitted to Med/Surg in stable condition. Given analgesics and started on IV antibiotics. Ortho consult with Dr. Roy was called. The patient was taken to the OR and underwent removal of hardware with debridement and lavage of the area. He tolerated the procedure well and returned to the medical floor in good and stable condition. Remainder of hospital stay was unremarkable. At this time, he has been cleared to be [facility] to the [facility] on Cipro and clindamycin for 45 days. CONDITION ON DISCHARGE: Stable. DISCHARGE DIAGNOSES: Right wrist cellulitis, status post hardware removal with debridement and lavage. DISCHARGE MEDICATIONS: Given a prescription for Cipro 500 mg p.o. b.i.d. x 45 days and clindamycin 450 mg t.i.d. x 45 days. He is instructed to follow up with [facility] within the next week. MD PETER Hazel/KAT/MARTIN TID: [id number] RECEIPT: [id number]
--- NOTE | 2025-07-24 19:23 | DVHPN2 ---
Progress Note - Dictate Date Seen: Jul 24, 2025 Medical Necessity Reason Pt with a Central, PICC or Fol: No Subjective Patient was seen and evaluated in follow up. Patient has no new complaints at this time. Patient denies any cardiac symptoms. Patient is cardiac stable for discharge. vital signs Vital Sign Date Time Temp Pulse Resp B/P (MAP) Pulse Ox O2 Delivery O2 Flow Rate FiO2 07/24/25 08:41 98.2 63 18 90/60 (70) 95 98.2 07/24/25 08:00 Room Air* 0 21 Total Intake and Output 07/23/25 07/23/25 07/24/25 15:00 23:00 07:00 Intake Total 600 ml 850 ml Output Total 1200 ml Balance -600 ml 850 ml medications Current Medications Medications Dose Ordered Sig/Arnoldo Route Start Time Stop Time Status Last Admin Dose Admin Nitroglycerin 0.4 mg Q5MINP PRN SL 07/20/25 14:30 Vancomycin HCl 0 ml @ 0 mls/hr UD IV 07/20/25 18:30 Cancel Pantoprazole Sodium 40 mg DAILY@0600 PO 07/21/25 06:00 07/24/25 05:22 40 MG Enoxaparin Sodium 40 mg DAILY SC 07/21/25 10:00 07/24/25 10:29 40 MG Acetaminophen/ Hydrocodone Bitart 1 tab Q4HPRN PRN PO 07/20/25 18:30 07/23/25 12:32 1 TAB Docusate Sodium 200 mg BID PO 07/23/25 22:00 UNV Lactulose 30 ml TIDP PRN PO 07/23/25 11:30 07/23/25 12:31 30 ML Docusate Sodium 100 mg BID PO 07/23/25 22:00 07/24/25 10:28 100 MG Ciprofloxacin 500 mg Q12HR PO 07/24/25 10:00 07/24/25 10:28 500 MG Clindamycin HCl 450 mg Q8HR PO 07/24/25 06:00 07/24/25 05:21 450 MG objective GENERAL: Alert and oriented x 3. No acute distress. EYES: PERRL, EOMI. Anicteric. HENT: Moist mucous membranes. LUNGS: Clear to auscultation bilaterally. CARDIOVASCULAR: Regular rate and rhythm. ABDOMEN: Soft, non-tender and non-distended. EXTREMITIES: Right wrist TTP. NEUROLOGIC: No focal neurological deficits. SKIN: Warm, dry. laboratory and microbiology Laboratory Tests 07/23/25 09:07 07/20/25 11:15 Test 07/20/25 11:15 Range/Units Serum Glucose 88 74-106 mg/dL Problem List Right wrist cellulitis. Status post right metacarpal fracture. Status post wrist surgery. Assessment/Plan Continued all current supportive medical care. IV antibiotics as ordered. DVT and GI prophylactics. Nitro SL. Additional plan as per the hospital course. Plan discussed with: Patient HODA GARCIA MD Jul 24, 2025 12:20
== END 2025-07-24 17:20 | disposition designated cancer center or children's hospital (05) | DRG 581 ==
LOC: ER 10:45 → EEVIPCON 10:45 → OVERFLOW 14:25 → EAST 21:40
PROVIDERS: ADMIT Specialist; ATTEND Internal Medicine
PROC: 0XP60JZ Removal of Synthetic Substitute from Right Upper Extremity, Open Approach (ICD-10-PCS; 2025-07-21)
PROC: 0JBJ0ZZ Excision of Right Hand Subcutaneous Tissue and Fascia, Open Approach (ICD-10-PCS; principal; 2025-07-21 12:39)
DX: L03.113 Cellulitis of right upper limb (principal); N40.0 Benign prostatic hyperplasia without lower urinary tract symptoms
CPT/HCPCS: 36415; 73100; 73200; 80048; 80202; 82565; 85025; 85652; 87081; 93005; 96365; 97110; 97116; 97163; 97530; G0378; J0131; J0692; J1100; J1885; J2003; J2250; J2405; J2704; J3490